=== PATIENT | male | born 1940 | race African-American/Black ===

== ENCOUNTER → 2024-11-16 | Day surgery (SDC) | payer MEDICARE ==
[~2024-11-16] MED LIST: Sodium Bicarbonate 2.5 MEQ/5 ML SDV ONE
[2024-11-16 13:18] VITALS: BP 97/55; TEMP 97.8
== END ==
LOC: CSHULT 12:40
PROVIDERS: ATTEND Physician Assistant Medical
DX: K74.60 Unspecified cirrhosis of liver (principal); R18.8 Other ascites; Z53.8 Procedure and treatment not carried out for other reasons; I50.9 Heart failure, unspecified; N18.9 Chronic kidney disease, unspecified; K21.00 Gastro-esophageal reflux disease with esophagitis, without bleeding
CPT/HCPCS: 76705; P9047

== ENCOUNTER → 2024-11-25 | Day surgery (SDC) | payer MEDICARE ==
[~2024-11-25] MED LIST changes: +Lidocaine 1% PF 5 ML VIAL ONE
== END ==
LOC: CSHULT 08:25
PROVIDERS: ATTEND Physician Assistant Medical
DX: K74.60 Unspecified cirrhosis of liver (principal); R18.8 Other ascites; I50.9 Heart failure, unspecified; N18.9 Chronic kidney disease, unspecified; K21.00 Gastro-esophageal reflux disease with esophagitis, without bleeding
CPT/HCPCS: P9047

== ENCOUNTER 2024-12-16 08:16 | Day surgery (SDC) | payer MEDICARE | END 2024-12-16 09:21 | disposition home or self-care (01) | LOC: CSHULT 08:16 | PROVIDERS: ATTEND Physician Assistant Medical | DX: K74.60 Unspecified cirrhosis of liver (principal); R18.8 Other ascites; N18.9 Chronic kidney disease, unspecified; K21.00 Gastro-esophageal reflux disease with esophagitis, without bleeding; I50.9 Heart failure, unspecified; Z88.5 Allergy status to narcotic agent | CPT/HCPCS: 76705 ==

== ENCOUNTER → 2024-12-23 | Day surgery (SDC) | payer MEDICARE | LOC: CSHULT 08:01 | PROVIDERS: ATTEND Physician Assistant Medical | PROC: 0W9G3ZZ Drainage of Peritoneal Cavity, Percutaneous Approach (ICD-10-PCS; principal; 2024-12-23) | DX: K74.60 Unspecified cirrhosis of liver (principal); R18.8 Other ascites; I50.9 Heart failure, unspecified; N18.9 Chronic kidney disease, unspecified; K21.00 Gastro-esophageal reflux disease with esophagitis, without bleeding | CPT/HCPCS: 49083; P9047 ==

== ENCOUNTER 2025-01-06 08:35 | Day surgery (SDC) | payer MEDICARE ==
[2025-01-06 09:27] LABS: #Basophils 0.04 10x3/uL (0.0-0.2); #Eosinophils 0.09 10x3/uL (0.0-0.5); #Monocytes 0.47 10x3/uL (0.0-1.1); #Neutrophils 3.14 10x3/uL (1.5-8.4); %Basophils 0.8 % (0.0-2.0); %Eosinophils 1.9 % (0.0-6.0); %Lymphocytes 21.2 % (18.0-47.0); %Monocytes 9.9 % (0.0-10.0); %Neutrophils 65.8 % (40.0-75.0); Hematocrit 41.8 % (38.8-50.0); Hemoglobin 13.3 g/dL (13.5-17.5); Mean Corpuscular Hemoglobin 25.0 pg (27.0-33.0); Mean Corpuscular Volume 78.7 fL (81.2-95.1); Platelet Count 341 10x3/uL (150-450); Red Blood Cell (RBC) Count 5.31 10x6/uL (4.32-5.72); White Blood Cell (WBC) Count 4.77 10x3/uL (3.5-10.5)
[2025-01-06 09:51] LABS: INR-International Normal Ratio 1.1; PTT 26.8 sec (22.0-33.0); Prothrombin Time 11.9 sec (9.5-12.1)
[2025-01-06] MEDS ORDERED: Sodium Bicarbonate 2.5 MEQ/5 ML SDV ONE (09:54)
== END 2025-01-06 10:55 | disposition home or self-care (01) ==
LOC: CSHULT 08:35
PROVIDERS: ATTEND Physician Assistant Medical
PROC: 0W9G3ZZ Drainage of Peritoneal Cavity, Percutaneous Approach (ICD-10-PCS; principal; 2025-01-06)
DX: K74.60 Unspecified cirrhosis of liver (principal); R18.8 Other ascites; I50.9 Heart failure, unspecified; N18.9 Chronic kidney disease, unspecified; K21.00 Gastro-esophageal reflux disease with esophagitis, without bleeding; Z88.5 Allergy status to narcotic agent
CPT/HCPCS: 49083; 85025; 85610; 85730; P9047

== ENCOUNTER 2025-01-20 09:04 | Day surgery (SDC) | payer MEDICARE ==
[2025-01-20] MEDS ORDERED: Sodium Bicarbonate 2.5 MEQ/5 ML SDV ONE (09:43)
== END 2025-01-20 10:35 | disposition home or self-care (01) ==
LOC: CSHULT 09:04
PROVIDERS: ATTEND Physician Assistant Medical
PROC: 0W9G3ZZ Drainage of Peritoneal Cavity, Percutaneous Approach (ICD-10-PCS; principal; 2025-01-20)
DX: K74.60 Unspecified cirrhosis of liver (principal); R18.8 Other ascites; I50.9 Heart failure, unspecified; N18.9 Chronic kidney disease, unspecified; K21.00 Gastro-esophageal reflux disease with esophagitis, without bleeding; Z88.5 Allergy status to narcotic agent
CPT/HCPCS: 49083; P9047

== ENCOUNTER 2025-02-03 08:03 | Day surgery (SDC) | payer MEDICARE ==
[2025-02-03] MEDS ORDERED: Sodium Bicarbonate 2.5 MEQ/5 ML SDV ONE (08:52)
[2025-02-03 14:16] LABS: BF Segmented Neutrophils 2 %; Cell Count Non Hematic 34 %
== END 2025-02-03 10:10 | disposition home or self-care (01) ==
LOC: CSHULT 08:03
PROVIDERS: ATTEND Physician Assistant Medical
PROC: 0W9G3ZZ Drainage of Peritoneal Cavity, Percutaneous Approach (ICD-10-PCS; principal; 2025-02-03)
DX: K74.60 Unspecified cirrhosis of liver (principal); R18.8 Other ascites; N18.9 Chronic kidney disease, unspecified; I50.9 Heart failure, unspecified; K21.00 Gastro-esophageal reflux disease with esophagitis, without bleeding
CPT/HCPCS: 49083; 87070; 89051; P9047

== ENCOUNTER 2025-02-17 07:57 | Day surgery (SDC) | payer MEDICARE ==
[2025-02-17 08:58] VITALS: BP 98/66; TEMP 97.2
[2025-02-17] MEDS ORDERED: Sodium Bicarbonate 2.5 MEQ/5 ML SDV ONE (09:05)
[2025-02-17 09:11] LABS: #Basophils 0.06 10x3/uL (0.0-0.2); #Eosinophils 0.19 10x3/uL (0.0-0.5); #Monocytes 0.34 10x3/uL (0.0-1.1); #Neutrophils 2.82 10x3/uL (1.5-8.4); %Basophils 1.3 % (0.0-2.0); %Eosinophils 4.1 % (0.0-6.0); %Lymphocytes 26.0 % (18.0-47.0); %Monocytes 7.4 % (0.0-10.0); %Neutrophils 61.0 % (40.0-75.0); Hematocrit 37.2 % (38.8-50.0); Hemoglobin 11.9 g/dL (13.5-17.5); Mean Corpuscular Hemoglobin 25.0 pg (27.0-33.0); Mean Corpuscular Volume 78.2 fL (81.2-95.1); Platelet Count 259 10x3/uL (150-450); Red Blood Cell (RBC) Count 4.76 10x6/uL (4.32-5.72); White Blood Cell (WBC) Count 4.62 10x3/uL (3.5-10.5)
[2025-02-17 09:27] LABS: INR-International Normal Ratio 1.1; PTT 25.5 sec (22.0-33.0); Prothrombin Time 11.9 sec (9.5-12.1)
== END 2025-02-17 10:30 | disposition home or self-care (01) ==
LOC: CSHULT 07:57
PROVIDERS: ATTEND Physician Assistant Medical
DX: K74.60 Unspecified cirrhosis of liver (principal); R18.8 Other ascites; N18.9 Chronic kidney disease, unspecified; I50.9 Heart failure, unspecified; K21.00 Gastro-esophageal reflux disease with esophagitis, without bleeding
CPT/HCPCS: 49083; 85025; 85610; 85730; P9047

== ENCOUNTER → 2025-03-19 | Day surgery (SDC) | payer MEDICARE ==
[~2025-03-19] MED LIST changes: -Lidocaine 1% PF 5 ML VIAL ONE
[2025-03-19 13:54] VITALS: BP 116/72; TEMP 98.4
== END ==
LOC: CSHULT 12:47
PROVIDERS: ATTEND Physician Assistant Medical
PROC: 0W9G3ZZ Drainage of Peritoneal Cavity, Percutaneous Approach (ICD-10-PCS; principal; 2025-03-19)
DX: K74.60 Unspecified cirrhosis of liver (principal); R18.8 Other ascites; I50.9 Heart failure, unspecified; N18.9 Chronic kidney disease, unspecified; K21.00 Gastro-esophageal reflux disease with esophagitis, without bleeding
CPT/HCPCS: 49083; P9047

== ENCOUNTER → 2025-03-30 | Day surgery (SDC) | payer MEDICARE ==
[2025-03-30 09:27] LABS: INR-International Normal Ratio 1.1; PTT 27.3 sec (22.0-33.0); Prothrombin Time 11.9 sec (9.5-12.1)
[2025-03-30 09:29] VITALS: BP 132/80; TEMP 98.5
== END ==
LOC: CSHULT 08:34
PROVIDERS: ATTEND Physician Assistant Medical
PROC: 0W9G30Z Drainage of Peritoneal Cavity with Drainage Device, Percutaneous Approach (ICD-10-PCS; principal; 2025-03-30)
DX: K74.60 Unspecified cirrhosis of liver (principal); N18.9 Chronic kidney disease, unspecified; K21.00 Gastro-esophageal reflux disease with esophagitis, without bleeding; I50.9 Heart failure, unspecified; R18.8 Other ascites
CPT/HCPCS: 49083; 85610; 85730; P9047